=== PATIENT | female | born 1980 | race Hispanic/Latino ===

== ENCOUNTER 2016-06-04 19:27 | Emergency (ER) | payer OTHER ==
[~2016-06-04 19:27] MED LIST: IBU-6600 MG PO; NASONEX0.05 MG/Ac NS; ROBITUSSIN W/CO10 ML PO
--- NOTE | 2016-06-04 20:01 | ED GENERAL ADULT ---
History of Present Illness General Chief Complaint: Female Urogenital Problems Stated Complaint: 11 WEEKS VAG BLEEDING Source: patient, family Exam Limitations: no limitations Vital Signs & Intake/Output Vital Signs & Intake/Output Vital Signs Date Time Temp Pulse Resp B/P Pulse O2 O2 Flow FiO2 Ox Delivery Rate 06/04 2126 70 101/60 06/04 1943 67 20 109/72 99 Room Air Triage Note: PER PT EDC 01/10. STARTED WITH VAGINAL BLEEDING TODAY X 1 WHEN WIPING, TOLD BY PMD TO HAVE US DONE DENIES USING PADS D/T BLEEDING Triage Nurses Notes Reviewed? yes Onset: Just prior to arrival Duration: 1 episode Timing: no prior history Injury Environment: home Severity: mild Severity Numbers: 3 No Modifying Factors: none : Yes Patient currently breastfeeds: No HPI: Patient is a 36-year-old female presenting to the emergency department with chief complaint of vaginal bleeding times one episode that happened today. She reports that she is currently 11 weeks . This is her third . Denies any vaginal discharge. No dysuria urgency frequency or hematuria. Denies any back pain. No abdominal pain or cramping. Denies passing any clots. She reports that it was a small amount of bleeding on the toilet paper that she noted what she was in the bathroom but called her TRESTLE MECHANIC and they told her to come into the emergency department for evaluation. It was only an isolated incident. No further bleeding. (ISAIAH THORNTON,RE) Allergies Coded Allergies: MDX - Tetanus Immune Globulin (TETANUS IMMUNE GLOBULIN) (SWELLING TO HANDS AND FACE 04/30/15) tetanus immune globulin (SWELLING TO HANDS AND FACE 06/04/16) Reconcile Medications Pnv#67/Iron Ps/FA Cmb#1/Dha (Vitafol Ultra Softgel) 29 MG IRON-1 MG-200 MG CAPSULE 1 CAP PO DAILY (Reported) (SHEILA BARTH MD) Past History Travel History Traveled to [place] past 21 day No Medical History Any Pertinent Medical History? see below for history Neurological: NONE EENT: NONE Cardiovascular: NONE Respiratory: NONE Gastrointestinal: NONE Hepatic: NONE Renal: NONE Musculoskeletal: NONE Psychiatric: NONE Endocrine: NONE Blood Disorders: NONE Cancer(s): NONE SCREED PERSON/Reproductive: NONE Tetanus Vaccine: 03/10/15 Surgical History Surgical History: non-contributory Psychosocial History What is your primary language Dutch Tobacco Use: Current Daily Use Daily Tobacco Use Amount/Type: => 5 Cigarettes daily Family History Hx Contributory? No (RE MUNOZ) Review of Systems Review of Systems Constitutional: Reports: no symptoms. Comments Review of systems: See HPI, All other systems negative. Constitutional, no chills fever or weight loss HEENT: No visual changes no sore throat no congestion Cardiovascular: No chest pain ,palpitation Skin, no jaundice no rashes Respiratory: No dyspnea cough sputum or hemoptysis GI: No nausea no vomiting : No dysuria No hematuria Muscle skeletal: no back pain, no neck pain, Neurologic: No numbness no confusion, no headaches Psych: No stress anxiety or depression,. Heme/endocrine: No bruising no bleeding no polyuria or polydipsia Immunology: No splenectomy or history of AIDS (RE MUNOZ) Physical Exam Physical Exam General Appearance: well developed/nourished, no apparent distress, alert, awake , comfortable Comments: Well-developed well-nourished person in no acute distress HEENT: Pupils equally round and reactive to light and accommodation. Nose is atraumatic. Neck: Normal inspection Back: Nontender, no CVA tenderness. Full range of motion Cardiovascular: Regular rate and rhythms no murmurs rubs or gallops, normal JVP Respiratory: Chest nontender. No respiratory distress.breath sounds clear to auscultation bilaterally Abdomen: Soft, nontender nondistended, no appreciable organomegaly. Normal bowel sounds. No ascites, no rebound or guarding. Extremity: No edema Neuro: Alert oriented x3 Skin: No appreciable rash on exposed skin, skin is warm and dry. Psych: Mood and affect is normal, memory and judgment is normal. Core Measures ACS in differential dx? No CVA/TIA Diagnosis: No Severe Sepsis Present: No Septic Shock Present: No (RE MUNOZ) Progress Differential Diagnoses I considered the following diagnoses in my evaluation of the patient: , threatened miscarriage, intrauterine , UTI, kidney stone Plan of Care: Orders Procedure Date/time Status URINALYSIS 06/04 1999 Complete HUMAN BETA HCG TITRE 06/04 1999 Complete COMPREHENSIVE METABOLIC PANEL 06/04 1999 Complete CBC WITHOUT DIFFERENTIAL 06/04 1999 Complete Laboratory Tests 06/04/16 2042: Urinalysis MOD H, Urine Color YEL, Urine Clarity CLDY H, Urine pH 8.0, Ur Specific Roark 1.015, Urine Protein NEG, Urine Ketones NEG, Urine Nitrite NEG, Urine Bilirubin NEG, Urine Urobilinogen 1.0, Ur Leukocyte Esterase NEG, Ur Microscopic SEDIMENT EXAMINED, Urine Hemoglobin NEG, Urine Glucose NEG 06/04/16 2009: Anion Gap 9, Estimated GFR > 60, BUN/Creatinine Ratio 12.0, Glucose 80, Calcium 9.2, Total Bilirubin 0.4, AST 20, ALT 38, Alkaline Phosphatase 44, Total Protein 6.0 L, Albumin 3.6, Globulin 2.4, Albumin/Globulin Ratio 1.5, Beta HCG, Quant 65457.0, CBC w Diff NO MAN DIFF REQ, RBC 3.98 L, MCV 96.5, MCH 32.5 H, RDW 12.7, MPV 9.9, Gran % 70.2, Lymphocytes % 21.5, Monocytes % 6.9, Eosinophils % 0.4, Basophils % 1.0, Absolute Granulocytes 8.7 H, Absolute Lymphocytes 2.7, Absolute Monocytes 0.9 H, Absolute Eosinophils 0, Absolute Basophils 0.1, PUBS MCHC 33.7 Diagnostic Imaging: Viewed by Me: Ultrasound. Discussed w/RAD: Ultrasound. Radiology Impression: TIENT: NELLIE QUIROGA PRESENT AGE: 36 PATIENT ACCOUNT NO: [id number] : 82 LOCATION: [facility] ORDERING PHYSICIAN: RE THORNTON SERVICE DATE: 06/04/16 EXAM TYPE: US - US- VIABILITY EXAMINATION: US , VIABILITY CLINICAL INFORMATION: Vaginal bleeding COMPARISON: None TECHNIQUE: Transabdominal and transvaginal technique FINDINGS: Anteverted uterus. Intrauterine gestational sac. pole identified with crown-rump length measuring approximately 3.7 cm. This corresponds to ultrasound estimated gestational age of 10 weeks and 6 days. Ultrasound estimated date of delivery 12/28/2016. Yolk sac identified. movement and heart beat identified. heart rate 117 bpm. Right ovary measures 4 x 2 x 2.4 cm. Left ovary could not be well-visualized. No evidence of free fluid. IMPRESSION: Single live intrauterine . Ultrasound estimated gestational age 10 weeks and 6 days. DICTATED BY: GUS MARTINEZ MD DATE/TIME DICTATED:06/04/162050 ROOFING MACHINE OPERATOR:[email or web address] DATE/TIME TRANSCRIBED:06/04/162050 CONFIDENTIAL, DO NOT COPY WITHOUT APPROPRIATE AUTHORIZATION. <Electronically signed in Other Vendor System> SIGNED BY: GUS MARTINEZ MD 06/04/162056 Initial ED EKG: none Comments: Declined pain medication on arrival. Patient is well-appearing and in no acute distress, afebrile. Patient informed of all lab results and imaging results. She'll follow up with her TRESTLE MECHANIC tomorrow. Etiology of bleeding ongoing at this time as patient reports that when she went to the bathroom here there was no episode of bleeding. Unsure if it was urethral or vaginal. No blood in urine. Patient will go for serial ultrasounds and hCG levels. (RE MUNOZ) Departure Departure Time of Disposition: 2118 Disposition: HOME OR SELF CARE Condition: Stable Clinical Impression Primary Impression: Intrauterine Referrals: CONNIE PATEL,ADELAIDE Hawley (PCP/Family) Additional Instructions: Follow-up with her TRESTLE MECHANIC as scheduled for tomorrow. Increase fluids. Return for worsening symptoms or concerns. Departure Forms: Customer Survey General Discharge Information (RE MUNOZ) PA/SENIOR SUPPLIER QUALITY ENGINEER Co-Sign Statement Statement: ED Attending supervision documentation- x I saw and evaluated the patient. I have also reviewed all the pertinent lab results and diagnostic results. I agree with the findings and the plan of care as documented in the PA's/SENIOR SUPPLIER QUALITY ENGINEER's documentation. [] I have reviewed the ED Record and agree with the PA's/SENIOR SUPPLIER QUALITY ENGINEER's documentation. [] Additions or exceptions (if any) to the PAs/SENIOR SUPPLIER QUALITY ENGINEER's note and plan are summarized below: [] (LARY PATEL,SHEILA) Critical Care Note Critical Care Note Critical Care Time: non-applicable (RE MUNOZ)
[2016-06-04 20:18] LABS: ABSOLUTE BASOPHIL COUNT 0.1 /CUMM (0.0-0.2); ABSOLUTE EOSINOPHIL COUNT 0 /CUMM (0.0-0.7); ABSOLUTE GRANULOCYTE CT 8.7 /CUMM (1.4-6.5); ABSOLUTE LYMPH COUNT 2.7 /CUMM (1.2-3.4); ABSOLUTE MONOCYTE COUNT 0.9 /CUMM (0.10-0.60); EOSINOPHIL % 0.4 % (0-5); GRANULOCYTE % 70.2 % (42.2-75.2); HEMATOCRIT 38.4 % (37-47); MEAN CORPUSCULAR HGB 32.5 PG (27.0-31.0); MEAN CORPUSCULAR HGB CONC 33.7 G/DL (33.0-37.0); MEAN CORPUSCULAR VOLUME 96.5 FL (81.0-99.0); MEAN PLATELET VOLUME 9.9 FL (7.4-10.4); PLATELET COUNT 192 /CUMM (130-400); RBC DISTRIBUTION WIDTH 12.7 % (11.5-14.5); RED BLOOD CELL CT 3.98 /CUMM (4.20-5.40); WHITE BLOOD CELL COUNT 12.4 /CUMM (4.8-10.8)
--- NOTE | 2016-06-04 20:57 | ULTRASOUND REPORT ---
EXAMINATION: US , VIABILITY CLINICAL INFORMATION: Vaginal bleeding COMPARISON: None TECHNIQUE: Transabdominal and transvaginal technique FINDINGS: Anteverted uterus. Intrauterine gestational sac. pole identified with crown-rump length measuring approximately 3.7 cm. This corresponds to ultrasound estimated gestational age of 10 weeks and 6 days. Ultrasound estimated date of delivery 12/28/2016. Yolk sac identified. movement and heart beat identified. heart rate 117 bpm. Right ovary measures 4 x 2 x 2.4 cm. Left ovary could not be well-visualized. No evidence of free fluid. IMPRESSION: Single live intrauterine . Ultrasound estimated gestational age 10 weeks and 6 days.
[2016-06-04] MEDS ORDERED: VITAFOL ULTRA1 EACH PO (21:25)
[2016-06-04 21:26] VITALS: BP 101/60
== END 2016-06-04 21:27 ==
LOC: ERH 19:27
PROVIDERS: Physician Assistant
DX: O20.9 Hemorrhage in early pregnancy, unspecified (principal); Z3A.11 11 weeks gestation of pregnancy
CPT/HCPCS: 81001

== ENCOUNTER 2016-06-30 17:27 | Emergency (ER) | payer OTHER ==
[~2016-06-30] VITALS: Ht 157.5 cm; Wt 71.2 kg
[~2016-06-30 17:27] MED LIST changes: +VITAFOL ULTRA1 EACH PO
--- NOTE | 2016-06-30 17:54 | ED CARDIAC/CP/PALPITATIONS ---
History of Present Illness General Chief Complaint: General Adult Stated Complaint: SIB MD EUCEDA FOR CHEST PRESSURE,14 WEEKS PREG Source: patient Exam Limitations: no limitations Vital Signs & Intake/Output Vital Signs & Intake/Output Vital Signs Date Time Temp Pulse Resp B/P Pulse O2 O2 Flow FiO2 Ox Delivery Rate 06/30 1912 98.0 76 18 108/69 99 Room Air 06/30 1750 98.3 70 18 117/73 100 Room Air Allergies Coded Allergies: tetanus immune globulin (SWELLING TO HANDS AND FACE 06/04/16) Reconcile Medications Pnv#67/Iron Ps/FA Cmb#1/Dha (Vitafol Ultra Softgel) 29 MG IRON-1 MG-200 MG CAPSULE 1 CAP PO DAILY (Reported) Triage Nurses Notes Reviewed? yes : Yes Patient currently breastfeeds: No HPI: Patient is a 36-year-old female presents complaining of midsternal and left sided chest pain intermittent for the past 2 days. Patient reports pain is 0 out of 10 at rest, patient gets a brief sharp/pressure pain with deep breath and movement. Patient saw her short goods drier today, Dr. Euceda, and was referred to the emergency department to rule out pulmonary embolism. Patient is currently 14 weeks . Patient reports that Dr. Euceda checked the baby during their appointment and she was told that everything looked good. Patient smokes approximately 3 cigarettes per day. Patient denies fevers, chills, cough , lower extremity pain, lower extremity swelling, dyspnea with exertion, chest pain with exertion (LENI AL) Past History Travel History Traveled to [place] past 21 day No Medical History Any Pertinent Medical History? see below for history Neurological: NONE EENT: NONE Cardiovascular: NONE Respiratory: NONE Gastrointestinal: NONE Hepatic: NONE Renal: NONE Musculoskeletal: NONE Psychiatric: NONE Endocrine: NONE Blood Disorders: NONE Cancer(s): NONE COMMERCIAL ASSISTANT/Reproductive: 2 ABORTIONS, 14 WEEKS Tetanus Vaccine: 03/10/15 Surgical History Surgical History: non-contributory Psychosocial History What is your primary language Mohawk Tobacco Use: Current Daily Use Daily Tobacco Use Amount/Type: =< 4 Cigarettes daily ETOH Use: denies use Illicit Drug Use: denies illicit drug use Family History Hx Contributory? No (LENI AL) Review of Systems Review of Systems Constitutional: Denies: chills, fever. EENTM: Reports: no symptoms. Respiratory: Denies: cough, short of breath. Cardiovascular: Reports: see HPI, chest pain. Denies: edema, orthopena, palpitations, peripheral edema, syncope. GI: Denies: abdominal pain, vomiting. Genitourinary: Reports: no symptoms. Musculoskeletal: Denies: back pain, neck pain. Skin: Reports: no symptoms. Neurological/Psychological: Reports: no symptoms. Hematologic/Endocrine: Reports: no symptoms. Immunologic/Allergic: Reports: no symptoms. (LENI AL) Physical Exam Physical Exam General Appearance: well developed/nourished, alert, awake Head: atraumatic, normal appearance Eyes: Bilateral: normal appearance, PERRL, EOMI. Ears, Nose, Throat: normal pharynx, normal ENT inspection, hearing grossly normal Neck: normal inspection, supple, full range of motion Respiratory: normal breath sounds, chest non-tender, no respiratory distress, lungs clear Cardiovascular: regular rate/rhythm, NO APPRECIABLE MURMURS RUBS OR GALLOPS Peripheral Pulses: 2+ dorsalis pedis (R), 2+ dorsalis pedis (L) Back: normal inspection, normal range of motion Extremities: normal inspection, normal capillary refill, normal range of motion, no edema, NO CALF TENDERNESS Neurologic/Psych: no motor/sensory deficits, awake, alert, oriented x 3, normal mood/affect Skin: intact, normal color, warm/dry Lymphatic: no anterior cervical sera Core Measures ACS in differential dx? Yes ASA ordered for poss ACS? No-ACS ruled out Severe Sepsis Present: No Septic Shock Present: No (LENI AL) Progress Differential Diagnosis: AMI, aortic dissection, CHF/pulm edema, musculoskeletal pain, myocarditis, pericarditis, pneumonia, pneumothorax, pulmonary embolism, unstable angina, pleurisy, cardiomyopathy Plan of Care: Orders Procedure Date/time Status Telemetry/Property Adjuster 06/30 180 Active TROPONIN LEVEL 06/30 180 Complete D-DIMER 06/30 180 Complete COMPREHENSIVE METABOLIC PANEL 06/30 1802 Complete CBC WITHOUT DIFFERENTIAL 06/30 1802 Complete EKG 06/30 1731 Active Laboratory Tests 06/30/16 1808: Anion Gap 8, Estimated GFR > 60, BUN/Creatinine Ratio 13.3, Glucose 80, Calcium 10.1, Total Bilirubin 0.3, AST 23, ALT 42, Alkaline Phosphatase 47, Troponin I < 0.01, Total Protein 6.1 L, Albumin 3.6, Globulin 2.5, Albumin/Globulin Ratio 1.4, D-Dimer < 200, CBC w Diff NO MAN DIFF REQ, RBC 3.97 L, MCV 93.3, MCH 32.0 H, RDW 12.8, MPV 10.6 H, Gran % 72.4, Lymphocytes % 19.7 L, Monocytes % 6.9, Eosinophils % 0.6, Basophils % 0.4, Absolute Granulocytes 9.6 H, Absolute Lymphocytes 2.6, Absolute Monocytes 0.9 H, Absolute Eosinophils 0.1, Absolute Basophils 0.1, PUBS MCHC 34.3 06/30/2016 6:15:24 PM: Discussed with Dr. Cervantes. 06/30/2016 6:35:47 PM: Evaluated by Dr. Cervantes. 06/30/2016 7:04:02 PM: D-dimer negative, patient's oxygen saturation 100% on room air. No ischemic changes on EKG. Patient appears stable for discharge. Discussed with Dr. Euceda (LENI AL) Initial ED EKG: normal axis, normal intervals, normal p-waves, normal QRS complex, normal sinus rhythm, no ST T wave changes (LENI AL) Departure Departure Time of Disposition: 1904 Disposition: HOME OR SELF CARE Condition: Stable Clinical Impression Primary Impression: Pleurisy Referrals: CONNIE PATEL,ADELAIDE Hawley (PCP/Family) Additional Instructions: Follow-up with your primary care doctor if no improvement within 1 to 2 days. Also follow-up with your short goods drier. Return to the emergency department if chest pain worsening, difficulty breathing, or worsening of symptoms. Departure Forms: Customer Survey General Discharge Information (LENI AL) PA/WILDLIFE ECOLOGY PROFESSOR Co-Sign Statement Statement: ED Attending supervision documentation- [] I saw and evaluated the patient. I have also reviewed all the pertinent lab results and diagnostic results. I agree with the findings and the plan of care as documented in the PA's/WILDLIFE ECOLOGY PROFESSOR's documentation. [X] I have reviewed the ED Record and agree with the PA's/WILDLIFE ECOLOGY PROFESSOR's documentation. [] Additions or exceptions (if any) to the PAs/WILDLIFE ECOLOGY PROFESSOR's note and plan are summarized below: [] (GABRIELA PATEL,ADELAIDE Morin) Critical Care Note Critical Care Note Critical Care Time: non-applicable (LORI THORNTON,LENI)
[2016-06-30 18:20] LABS: ABSOLUTE BASOPHIL COUNT 0.1 /CUMM (0.0-0.2); ABSOLUTE EOSINOPHIL COUNT 0.1 /CUMM (0.0-0.7); ABSOLUTE GRANULOCYTE CT 9.6 /CUMM (1.4-6.5); ABSOLUTE LYMPH COUNT 2.6 /CUMM (1.2-3.4); ABSOLUTE MONOCYTE COUNT 0.9 /CUMM (0.10-0.60); BASOPHIL % 0.4 % (0.0-2.0); EOSINOPHIL % 0.6 % (0-5); GRANULOCYTE % 72.4 % (42.2-75.2); MEAN CORPUSCULAR HGB CONC 34.3 G/DL (33.0-37.0); MEAN CORPUSCULAR VOLUME 93.3 FL (81.0-99.0); MEAN PLATELET VOLUME 10.6 FL (7.4-10.4); PLATELET COUNT 187 /CUMM (130-400); RBC DISTRIBUTION WIDTH 12.8 % (11.5-14.5); RED BLOOD CELL CT 3.97 /CUMM (4.20-5.40); WHITE BLOOD CELL COUNT 13.3 /CUMM (4.8-10.8)
[2016-06-30 19:12] VITALS: BP 108/69
== END 2016-06-30 19:13 ==
LOC: ERH 17:27
PROVIDERS: Physician Assistant
DX: O99.89 Other specified diseases and conditions complicating pregnancy, childbirth and the puerperium (principal); R09.1 Pleurisy; Z72.0 Tobacco use; R07.9 Chest pain, unspecified; Z3A.14 14 weeks gestation of pregnancy
CPT/HCPCS: 93005; 93010